=== PATIENT | male | born 2000 | race Caucasian/White ===

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

== ENCOUNTER 2019-07-07 13:46 | Emergency (ER) | payer OTHER ==
[2019-07-07] MEDS ORDERED: methylPREDNISolone 125 MG* 2 ML VIAL IV ONE (13:53)
[2019-07-07] MEDS ORDERED: Famotidine IV* 10 MG/ML 2 ML (20 mg) IV SLOW PU ONE (13:53)
[2019-07-07] MEDS ORDERED: diPHENhydraMINE IV* 50 MG/ML 1 ml VIAL (BENADRYL) IV ONE (13:53)
--- NOTE | 2019-07-07 14:25 | ED ---
Allergic Reaction/Systemic - HPI Summary HPI Summary: 19-year-old male presents with potentially allergic reaction today. He states that he was cutting trees and and felt a rash across his neck. He states that the rash is very itchy and has been spreading. He states that he feels like throat is closing. Also states that having difficulty breathing. No chest pain. No bowel pain. No nausea and vomiting. never had this reaction before. has history of asthma. - History of Current Complaint Chief Complaint: EDAllergicReaction Time Seen by Provider: 07/07/19 13:53 Pain Intensity: 8 - Allergies/Home Medications Allergies/Adverse Reactions: Allergies Allergy/AdvReac Type Severity Reaction Status Date / Time No Known Allergies Allergy Verified 10/30/16 12:53 Home Medications: Home Medications Amphetamine/Dextroamph ER(NF) [Adderal XR (NF)] 10 mg PO DAILY 07/07/19 [ History Confirmed 07/07/19] Cetirizine* [ZyrTEC 10 MG TAB*] 10 mg PO DAILY 07/07/19 [History Confirmed 07/07] Ibuprofen TAB* [Motrin TAB* 600 MG] 600 mg PO Q6H PRN 07/07/19 [History Confirmed 07/07/19] SUMAtriptan TAB* [Imitrex TAB*] 50 mg PO Q2HR PRN 07/07/19 [History Confirmed ] PMH/Surg Hx/FS Hx/Imm Hx Endocrine/Hematology History: Denies: Hx Diabetes, Hx Thyroid Disease Cardiovascular History: Reports: Hx Syncope - Episode like this in the past Denies: Hx Hypertension, Hx Pacemaker/ICD Respiratory History: Denies: Hx Asthma, Hx Chronic Obstructive Pulmonary Disease (COPD) GI History: Denies: Hx Ulcer Musculoskeletal History: Denies: Hx Rheumatoid Arthritis, Hx Osteoporosis Sensory History: Reports: Hx Contacts or Glasses Denies: Hx Hearing Aid Opthamlomology History: Reports: Hx Contacts or Glasses Neurological History: Reports: Hx Migraine Denies: Other Neuro Impairments/Disorders Psychiatric History: Denies: Hx Panic Disorder - Surgical History Surgery Procedure, Year, and Place: tonsillectomy, PE tubes Infectious Disease History: No Infectious Disease History: Denies: Hx Hepatitis, Hx Human Immunodeficiency Virus (HIV), Traveled Outside the [place] in Last 30 Days - Family History Known Family History: Positive: Hypertension - Mother, Diabetes - Grandparent - Social History Alcohol Use: None Substance Use Type: Reports: None Smoking Status (MU): Never Smoked Tobacco Review of Systems Negative: Fever Negative: Chest Pain Negative: Shortness Of Breath Positive: Rash All Other Systems Reviewed And Are Negative: Yes Physical Exam Triage Information Reviewed: Yes Vital Signs On Initial Exam: Initial Vitals Temp Pulse Resp BP Pulse Ox 98.3 F 80 18 137/85 97 07/07/19 13:48 07/07/19 13:48 07/07/19 13:48 07/07/19 13:48 07/07/19 13:48 Vital Signs Reviewed: Yes Appearance: Positive: Well-Appearing Skin: Positive: Warm, Dry, Other - urticaria across back and chest Head/Face: Positive: Normal Head/Face Inspection Eyes: Positive: Normal, Conjunctiva Clear ENT: Positive: Pharynx normal, TMs normal Respiratory/Lung Sounds: Positive: Clear to Auscultation, Breath Sounds Present Cardiovascular: Positive: Normal, RRR Abdomen Description: Positive: Nontender, Soft Bowel Sounds: Positive: Present Musculoskeletal: Positive: Normal Neurological: Positive: Normal Psychiatric: Positive: Normal Diagnostics - Vital Signs Vital Signs Temp Pulse Resp BP Pulse Ox 07/07/19 13:48 98.3 F 80 18 137/85 97 - Laboratory Lab Statement: Any lab studies that have been ordered have been reviewed, and results considered in the medical decision making process. Re-Evaluation - Re-Evaluation First Eval Re-Evaluation Time: 15:50 Change: Improved Allergic Reaction Course/Dx - Course Course Of Treatment: 19-year-old male presents with potentially allergic reaction today. He states that he was cutting trees and and felt a rash across his neck. He states that the rash is very itchy and has been spreading. He states that he feels like throat is closing. Also states that having difficulty breathing. No chest pain. No bowel pain. No nausea and vomiting. never had this reaction before. has history of asthma. on exam hives across neck. lungs CTA. abd soft nontender. pharynx normal. gave solumedrol, pepcid and benadryl with improvement. no worsening reaction while here. will prescribe prednisone for at home. patient understand and agrees with plan. - Diagnoses Differential Diagnosis/HQI/PQRI: Positive: Anaphylaxis, Local Allergic Reaction , Urticaria Provider Diagnoses: Allergic reaction Discharge - Sign-Out/Discharge Documenting (check all that apply): Patient Departure Patient Received Moderate/Deep Sedation with Procedure: No - Discharge Plan Condition: Good Disposition: HOME Prescriptions: Famotidine TAB* [Pepcid 20 MG TAB*] 20 mg PO BID #8 tab predniSONE TAB* [Deltasone TAB*] 50 mg PO DAILY #5 tab Patient Education Materials: General Allergic Reaction (ED) Referrals: Ruby Christian MD [Primary Care Provider] - Additional Instructions: Take Benadryl every 6 hours Take Pepcid twice a day for 5 days Take steroid once a day for 4 days starting tomorrow follow up with primary Return to ED if shortness of breath, chest pain, or if develop any new or worsening symptomss - Billing Disposition and Condition Condition: GOOD Disposition: Home
[2019-07-07 16:01] VITALS: BP 109/67
== END 2019-07-07 15:59 | disposition home or self-care (01) ==
LOC: ED 13:46
DX: T78.40XA Allergy, unspecified, initial encounter (principal); X58.XXXA Exposure to other specified factors, initial encounter; Y92.9 Unspecified place or not applicable; Z79.899 Other long term (current) drug therapy
CPT/HCPCS: 96374; 96375; 99282; J1200; J2930